=== PATIENT | male | born 1975 | race Asian ===

== ENCOUNTER → 2024-05-13 15:40 | Outpatient (REF) | payer BC, SELFPAY | LOC: DHSLP 15:40 | PROVIDERS: ATTENDING PHYSICIAN Internal Medicine Critical Care Medicine; FAMILY PHYSICIAN Nurse Practitioner Family | DX: G47.33 Obstructive sleep apnea (adult) (pediatric) (principal) | CPT/HCPCS: 95800 ==

== ENCOUNTER 2024-07-31 10:06 | Emergency (ER) | payer BC, SELFPAY ==
[2024-07-31 10:26] VITALS: BP 155/106
--- NOTE | 2024-07-31 11:41 | ED.GENMED ---
History of Present Illness
General
Chief Complaint: Abdominal Symptoms
Source: patient
Exam Limitations: none
Time Seen by Provider: 07/31/24 10:59
Nursing documentation reviewed up to this point in time: agreed with
History of Present Illness
History of Present Illness:
48-year-old male presents to the ER for evaluation nausea vomiting diarrhea. He has been on Zepbound for the past 4 months however at a lower dose of 2.5 mg IM monthly injection. This week however he was given a higher dose of 5 mg on Saturday
injection. Last night he started with vomiting diarrhea and that has since continued this morning. Initially he self-induced the first episode of vomiting because he was very nauseous however he vomited several times after and again this morning.
This morning he was not even able to tolerate oral water. He had several episodes of diarrhea. He denies any abdominal pain. He denies any fever or chills. He denies any urinary frequency urgency or dysuria.
Review of Systems
Review of Systems
Allergies reviewed?: Yes
All Other Systems: ROS reviewed and negative except as documented in HPI and ROS
Constitutional: Reports no symptoms
ABD/GI: Reports nausea, vomiting and diarrhea; Denies abdominal pain
: Reports no symptoms
Musculoskeletal: Reports no symptoms
Skin: Reports no symptoms
Neurological: Reports no symptoms
Hematologic/Lymphatic: Reports no symptoms
Psychiatric: Reports no symptoms
Phy Exam
General Physical Exam
General Presentation: well appearing
General age: appears stated age
General Skin: warm and dry
General Habitus: normal
General Mental: alert
General Hydration: appears well hydrated
Gastrointestinal Exam
Gastrointestinal Exam: non tender and soft
Neurological Exam
Neurological Exam: alert and oriented x3
Musculoskeletal Exam
Musculoskeletal Exam: full ROM
Skin Exam
Skin Exam: normal color and warm/dry
Psychiatric Exam
Psychiatric Exam: normal mood/affect
Course
Orders/Labs/Results
Orders:
Orders
07/31/24 12:02
IV Insert/Care/Rem.- Treatment PRN
Urinalysis Reflex To Culture Urgent
Date Specimen was Collected: 07/31/24
Time Specimen was Collected: 16:07
0.9% Sodium Chloride 1000 ml [Nss] 1,000 ml IV BOLUS
Ondansetron Injectable [Zofran] 4 mg IV NOW STA
07/31/24 12:10
Complete Blood Count/With Diff Urgent
Comprehensive Metabolic Panel Urgent
Lipase Urgent
Magnesium Urgent
Comment: ADD ON
07/31/24 12:40
Add On- LAB Urgent
Tests Added?: Magnesium
07/31/24 14:33
US Abdomen Complete/Upper Urgent
Comment:
Reason For Exam: nausea/vomiting /diarrhea elevated lfts
Abnormal Lab Results
07/31/24
12:10
WBC 13.3 H 10^3/uL
(4.8-10.8)
RBC 6.14 H 10^6/uL
(4.70-6.10)
Hgb 18.5 H g/dL
(13.0-18.0)
Hct 52.9 H %
(39.0-52.0)
MPV 10.8 H fL
(7.4-10.4)
Abs Immat Gran (auto) 0.1 H 10^3/uL
(0-0.05)
Absolute Neuts (auto) 10.6 H 10^3/uL
(1.4-6.5)
Neutrophils % 80.0 H %
(42.2-75.2)
Lymphocytes % 15.6 L %
(20.5-51.1)
Chloride 97 L mmol/L
(98-107)
BUN 25 H mg/dl
(9-20)
Glucose 100 H mg/dl
(70-99)
Calcium 11.0 H mg/dl
(8.4-10.2)
Total Bilirubin 1.6 H mg/dl
(0.2-1.3)
ALT 59 H U/L
(0-50)
Total Protein 8.9 H g/dl
(6.3-8.2)
Albumin 5.5 H g/dl
(3.5-5.0)
07/31/24 12:10
07/31/24 12:10
Vital Signs
Initial and Last Documented VS:
Initial Vital Signs
Temp Pulse Resp BP Pulse Ox
99.5 F 94 18 155/106 98
07/31/24 10:26 07/31/24 10:26 07/31/24 10:26 07/31/24 10:26 07/31/24 10:26
Last Documented Vital Signs
Temp Pulse Resp BP Pulse Ox
99.5 F 87 18 121/73 100
07/31/24 10:26 07/31/24 14:12 07/31/24 14:12 07/31/24 14:12 07/31/24 14:12
[employer] consulted with Physician
[employer] consulted with physician?: Yes
Name of Physician Consulted: DR Whitaker
MDM/Problems Addressed
Differential Diagnosis Includes:
not limited to: Medication reaction dehydration viral syndrome
MDM/Problems Addressed:
Symptoms of nausea vomiting diarrhea likely Zepbound related(as patient recently increased his dose) oral viral syndrome. He denies any abdominal pain with this and had no abdominal tenderness however with mildly elevated bilirubin and ALT
ultrasound was done. Ultrasound currently pending however if negative plan for discharge home with outpatient follow-up. Patient received Zofran and fluids here feeling much better drinking water. Will plan to discharge with Zofran with close
outpatient with family doctor.
Ultrasound negative for evidence for cholelithiasis acute cholecystitis or bili obstruction mild to moderate diffuse liver disease discussed with patient regarding importance of outpatient follow-up patient incidentally also has a gallbladder polyp
Chronic conditions affecting care:
On zepbound for weight loss.
*Critical Care Note
Total Time (30-74mins, 75-104mins- exclusive of procedures): Not Applicable
ED Attending Note
-
Portions of this chart may have been created with voice recognition software.� Occasional wrong word or��sound alike� substitutions may have occurred due to the inherent limitations of voice recognition software.
Discharge Plan
Departure
Patient Disposition: Home (Routine Discharge)
Date of Disposition: 07/31/24
Time of Disposition: 16:17
Patient with high blood pressure during this ER visit?: Yes
Condition: Fair
Covid-19: Not Applicable
Discharge Problem:
Nausea & vomiting, Diarrhea
Instructions: Diarrhea in teens and adults, Nausea and Vomiting, Adult (DC), BLOOD PRESSURE
Prescriptions:
New
ondansetron 4 mg tablet,disintegrating
4 mg PO Q8H PRN (Reason: nausea and vomiting) Qty: 10 0RF
Referrals:
Eugene Johnson CRNP [Family Provider] -
Activity Restrictions/Additional Instructions:
As discussed a prescription for nausea medicine was sent to your pharmacy to take as directed. Clear fluids for the first 24 hours followed by bland solid foods.
As discussed please follow-up with family doctor in the next 2 days for reevaluation of your symptoms. You will need repeat blood work as your bilirubin and liver function tests are elevated along with your white count and you are mildly dehydrated.
In addition please follow-up with your family doctor for reevaluation of your ultrasound results including mild to moderate diffuse liver disease and gallbladder polyp. You were given a copy of your report.
Return if any worsening of symptoms.
Interventions
Interventions:
*Risk Screen - Suicide Last Done: 07/31/24 10:28
*General Assessment Last Done: 07/31/24 10:28
*Neglect/Abuse Screening Last Done: 07/31/24 10:28
ED- Fall Risk Assessment Last Done: 07/31/24 12:23
*ED COVID-19 Vaccine History Last Done: 07/31/24 10:28
MY-Ngsdke-Riljatlgaj Assessment Last Done: 07/31/24 12:23
Discharge Date and Time
Print Language: ETHIOPIAN
[2024-07-31] MEDS: NSS 1000 IV (12:09)
[2024-07-31] MEDS: ZOFRAN 4 MG IV (12:13)
[2024-07-31 12:14] VITALS: BP 149/99
[2024-07-31 12:24] LABS: % Basophils 0.2 % (0-2); % Eosinophils 0.2 % (0-6); % Immature Granulocytes 0.5 % (0-0.5); % Lymphocytes 15.6 % (20.5-51.1); % Monocytes 3.5 % (1.7-9.3); Absolute Immature Granulocytes 0.1 10^3/uL (0-0.05); Absolute Lymphocytes 2.1 10^3/uL (1.2-3.4); Absolute Monocytes 0.5 10^3/uL (0.1-0.6); Absolute Neutrophils 10.6 10^3/uL (1.4-6.5); Hematocrit 52.9 % (39.0-52.0); Hemoglobin 18.5 g/dL (13.0-18.0); Mean Corpuscular Hgb 30.1 pg (27.0-31.0); Mean Corpuscular Volume 86.2 fL (80.0-94.0); Mean Platelet Volume 10.8 fL (7.4-10.4); Nucleated Red Blood Cells % 0 % (-); Platelet Count 295 10^3/uL (130-400); Red Blood Cell Count 6.14 10^6/uL (4.70-6.10); Red Cell Dist. Width 13.4 % (11.5-14.5); White Blood Cell Count 13.3 10^3/uL (4.8-10.8)
[2024-07-31 12:40] LABS: ALT (SGPT) 59 U/L (0-50); AST (SGOT) 40 U/L (17-59); Albumin 5.5 g/dl (3.5-5.0); Alkaline Phosphatase 94 U/L (38-126); Blood Urea Nitrogen 25 mg/dl (9-20); Carbon Dioxide 29 mmol/L (22-30); Chloride 97 mmol/L (98-107); Glucose 100 mg/dl (70-99); Lipase 76 U/L (23-300); Potassium 4.9 mmol/L (3.5-5.1); Sodium 141 mmol/L (135-145); Total Bilirubin 1.6 mg/dl (0.2-1.3); Total Protein 8.9 g/dl (6.3-8.2); eGFR > 60.00
[2024-07-31 13:10] LABS: Magnesium 2.2 mg/dl (1.6-2.3)
[2024-07-31 14:12] VITALS: BP 121/73
[2024-07-31 16:19] VITALS: BP 136/85
[2024-07-31 16:45] LABS: Urine Albumin 1+ (Neg - Trace); Urine Bilirubin 1+ (Negative); Urine Character Clear (Clear); Urine Color Yellow; Urine Glucose Negative (Negative); Urine Ketone Trace (Negative); Urine Leukocyte Negative (Negative); Urine Nitrite Negative (Negative); Urine Occult Blood 1+ (Negative); Urine Urobilinogen Negative (Neg - 1+)
[2024-07-31 16:58] LABS: Urine Mucus Many
[2024-07-31 16:59] LABS: Urine Bacteria Many (Negative); Urine White Cell 0-2 /HPF (0-5)
== END 2024-07-31 16:38 | disposition home or self-care (01) ==
LOC: EMR 10:06
PROVIDERS: Nurse Practitioner; EMERGENCY PHYSICIAN Emergency Medicine; FAMILY PHYSICIAN Nurse Practitioner Family
DX: R11.2 Nausea with vomiting, unspecified (principal); R19.7 Diarrhea, unspecified
CPT/HCPCS: 99284; 96374; 96361; 76700; 80053; 81003; 81015; 83690; 83735; 85025; 87086

== ENCOUNTER 2025-06-11 15:20 | Emergency (ER) | payer BC, SELFPAY ==
[2025-06-11 15:29] VITALS: BP 160/100
[2025-06-11 15:53] LABS: Hematocrit 46.0 % (39.0-52.0); Hemoglobin 16.1 g/dL (13.0-18.0); Mean Corp Hgb Conc. 35.0 g/dL (33.0-37.0); Mean Corpuscular Volume 87.8 fL (80.0-94.0); Nucleated Red Blood Cells % 0 % (-); Platelet Count 221 10^3/uL (130-400); Red Cell Dist. Width 13.3 % (11.5-14.5); Urine Character Clear (Clear)
[2025-06-11 15:59] LABS: Urine Squamous Cell 0-2 /LPF (Few)
[2025-06-11 16:00] VITALS: BP 151/79
[2025-06-11 16:00] LABS: Urine White Cell 0-2 /HPF (0-5)
[2025-06-11 16:01] LABS: Urine Red Blood Cell 26-30 /HPF (0-2)
[2025-06-11 16:19] LABS: ALT (SGPT) 152 U/L (0-50); AST (SGOT) 84 U/L (17-59); Albumin 4.8 g/dl (3.5-5.0); Alkaline Phosphatase 183 U/L (38-126); Blood Urea Nitrogen 16 mg/dl (9-20); Calcium 10.2 mg/dl (8.4-10.2); Carbon Dioxide 29 mmol/L (22-30); Chloride 101 mmol/L (98-107); Glucose 84 mg/dl (70-99); Potassium 4.3 mmol/L (3.5-5.1); Sodium 137 mmol/L (135-145); Total Protein 7.7 g/dl (6.3-8.2); eGFR > 60.00
[2025-06-11 16:20] LABS: Troponin I < 0.012 ng/ml
[2025-06-11 16:35] VITALS: BMI 32.3
--- NOTE | 2025-06-11 16:41 | ED.GENMED ---
History of Present Illness
General
Chief Complaint: Chest Pain
Source: patient
Time Seen by Provider: 06/11/25 16:25
History of Present Illness
History of Present Illness:
49-year-old male presents emergency department with complaints of discomfort that he first felt like was in the 'stomach cramping' area after having dinner on Saturday. He took an antacid and then said that he noted it was more so on the right lower
chest. Since that time, he has had intermittent discomfort across his lower chest bilaterally that feels like someone is holding him tightly. This will come and go without specific provoking or relieving factors. He saw his primary care doctor on
Saturday and was diagnosed with musculoskeletal discomfort. He received a pneumonia vaccine at that time. He presents the ER today because his discomfort continues to wax and wane. He is chest pain-free now. He describes it as mild and 'not
excruciating', also describes it as similar to body aches when you have the flu. He denies associated diaphoresis, nausea, vomiting, anorexia, abdominal pain, urinary symptoms, fever, chills. Patient has not breathless or dyspneic but states that
he feels like he is not taking a deep breath. He denies leg swelling. He does have a history of sciatica and notes a recent flare within the last week or so. Now, he is noting discomfort in the right lower back which is consistent with prior
sciatica. He denies associated bowel or bladder incontinence numbness or tingling. He denies upper or mid back pain. Pain that he is describing is not ripping or tearing quality and not sudden in onset.
Past History
Past History
ED Past Medical History: GERD, Hypercholesterolemia and Other (MITCH)
ED Past Surgical History: Appendectomy and Orthopedic
Social History
Tobacco: Smoker
Alcohol: Occasional
Drug: None
Personal:
Living: with family
Phy Exam
Physical Exam
Physical Exam:
GENERAL: Alert , in no apparent distress
EYE: pupils equal and reactive
NECK: Supple, no significant adenopathy.
ENT: o/p clr, mmm.
CARDIAC: Regular rate and rhythm .
LUNGS: Clear breath sounds bilaterally, no acute respiratory distress, no wheezes/rales/rhonchi
ABDOMEN: Soft, without focal tenderness, no r/g, no cvat
NEUROLOGICAL: Alert and oriented, no focal neuro deficits
SKIN: Warm and dry, skin intact.
MUSCULOSKELETAL: No edema, well perfused.
PSYCH: Normal and appropriate interaction.
Scores
Heart Score for Chest Pain Patients
STEMI patient?: Not applicable
Course
Orders/Labs/Results
Orders:
Orders
06/11/25 15:22
ECG [Electrocardiogram (*1)] Urgent
Reason for Study: Chest Pain
EKG- Treatment ONCE
06/11/25 15:39
Complete Blood Count/With Diff Urgent
Comprehensive Metabolic Panel Urgent
Lipase Urgent
Comment: ADD ON
Troponin I Urgent
Urinalysis Reflex To Culture Urgent
Date Specimen was Collected: 06/11/25
Time Specimen was Collected: 15:32
Urine Microscopic Reflex Cult Urgent
06/11/25 16:40
CT Abd/pel Without Iv Or Oral Urgent
Comment:
Reason For Exam: R sided pain, hematuria
Ketorolac [Toradol] 15 mg IV NOW STA
06/11/25 16:44
D-Dimer Urgent
06/11/25 18:38
Troponin I Urgent
06/11/25 18:52
Add On- LAB Urgent
Tests Added?: lipase add on
Abnormal Lab Results
06/11/25
15:39
MPV 11.0 H fL
(7.4-10.4)
Abs Immat Gran (auto) 0.1 H 10^3/uL
(0-0.05)
Absolute Neuts (auto) 7.0 H 10^3/uL
(1.4-6.5)
Absolute Monos (auto) 0.8 H 10^3/uL
(0.1-0.6)
Immature Gran % 0.6 H %
(0-0.5)
Total Bilirubin 1.6 H mg/dl
(0.2-1.3)
AST 84 H U/L
(17-59)
ALT 152 H U/L
(0-50)
Alkaline Phosphatase 183 H U/L
(38-126)
Ur Occult Blood Reflex 4+ A
(Negative)
Urine RBC 26-30 A /HPF
(0-2)
Urine Bacteria (Reflex) Few A
(Negative)
Urine Albumin (Reflex) 1+ A
(Neg - Trace)
06/11/25 15:39
06/11/25 15:39
Vital Signs
Initial and Last Documented VS:
Initial Vital Signs
Temp Pulse Resp BP Pulse Ox
98.9 F 91 16 160/100 98
06/11/25 15:29 06/11/25 15:29 06/11/25 15:29 06/11/25 15:29 06/11/25 15:29
Last Documented Vital Signs
Temp Pulse Resp BP Pulse Ox
98.9 F 75 22 157/89 97
06/11/25 15:29 06/11/25 19:00 06/11/25 19:00 06/11/25 19:00 06/11/25 19:00
*Pulse Oximetry
SaO2: 98
Oxygen Mode of Delivery: Room air
Patient hypoxic: no
*Critical Care Note
Total Time (30-74mins, 75-104mins- exclusive of procedures): Not Applicable
Update Note
Update Note:
Patient presents to the Emergency Department with ____chest and lower R back pain
Number and Complexity of Problems Addressed at the Encounter
� Chronic conditions affecting care:
� Acute Exacerbation and/or Progression of Chronic Illness:
� Differential Diagnosis includes:but not limited to sciatica, msk pain, pe, acs, kidney stone, cholecystitisetc etc.
Amount and/or Complexity of Data to be Reviewed and Analyzed
� I performed an independent evaluation of and my interpretation is:
EKG:read by me, nsr, incomleted RBBB, no acute ischemia (non spec T wave inver)
CT:Findings suggesting mild acute pancreatitis. Clinical and laboratory correlation recommended.
Moderate fecal matter throughout the colon.
Xrays:
Laboratory Studies:nonspec lft abnl, miroscop hematuria (?k stone), nl wbc, trop wnl x 2, lipase normal despite mild acute pancreatitis noted on CT scan
Other:
� Review of other/old records reveals:
� Clinical information was obtained by an independent historian:
� Prescriptions/Medications Considered but not given:
� Further testing considered but not performed:
Risk of Complications and/or Morbidity or Mortality of Patient Management
� Social determinants of health affecting care:
� Discussion with other providers (PCP, Hospitalists, Consultants, etc):
� Escalation of care including admission/observation vs risk of discharge considered: 7:47 PM patient resting comfortably, smiling, no acute distress, denies any complaints at this time. Long discussion with him regarding
findings here that require close follow-up including microscopic hematuria, CT finding of mild acute pancreatitis despite a normal lipase. Of note, he thinks that this was a finding in the past. Patient is on Zepbound which may be contributing to
this. He is not having episodes of nausea or vomiting at this time. He was also made aware regarding his mild LFT abnormalities. He has not had excessive acetaminophen intake. He drinks about 1 serving of alcohol per day. Discussed with patient
portance of follow-up and reasons return to the ER.
ED Attending Note
-
Portions of this chart may have been created with voice recognition software.� Occasional wrong word or��sound alike� substitutions may have occurred due to the inherent limitations of voice recognition software.
Discharge Plan
Departure
Patient Disposition: Home (Routine Discharge)
Date of Disposition: 06/11/25
Time of Disposition: 19:47
Patient with high blood pressure during this ER visit?: Yes
Condition: Good
Discharge Problem:
Chest pain
Instructions: Chest Pain PCP Follow Up, BLOOD PRESSURE
Prescriptions:
No Action
ondansetron 4 mg tablet,disintegrating
4 mg PO Q8H PRN (Reason: nausea and vomiting) Qty: 10 0RF
Referrals:
UNKNOWN - PT DOES,NOT KNOW [Unknown Provider]
Activity Restrictions/Additional Instructions:
PLEASE BRING THE PRINTED COPIES OF YOUR CAT SCAN AND LABORATORY VALUES TO YOUR DOCTOR THIS WEEK AND CLOSE FOLLOW-UP. IF YOU DEVELOP RECURRENT CHEST PAIN, ANY ABDOMINAL PAIN, VOMITING, TROUBLE BREATHING, FEVER, OR OTHER WORRISOME SIGNS, PLEASE
RETURN TO THE ER IMMEDIATELY!
Interventions
Interventions:
*Risk Screen - Suicide Last Done: 06/11/25 15:29
*General Assessment Last Done: 06/11/25 16:37
*Neglect/Abuse Screening Last Done: 06/11/25 15:29
*ED- Fall Risk Assessment Last Done: 06/11/25 16:37
*ED COVID-19 Vaccine History Last Done: 06/11/25 16:37
ED- Cardiac Assessment Last Done: 06/11/25 16:34
Discharge Date and Time
Print Language: FRENCH
[2025-06-11] MEDS: TORADOL 15 MG IV (16:48)
[2025-06-11 17:00] VITALS: BP 151/86
[2025-06-11 17:10] LABS: D-Dimer < 0.27 ug/mlFEU (0.00-0.50)
[2025-06-11 18:38] VITALS: BP 145/88
[2025-06-11 19:00] VITALS: BP 157/89
[2025-06-11 19:13] LABS: Troponin I 0.013 ng/ml
[2025-06-11 19:33] LABS: Lipase 124 U/L (23-300)
== END 2025-06-11 19:59 | disposition home or self-care (01) ==
LOC: EMR 15:20
PROVIDERS: EMERGENCY PHYSICIAN Emergency Medicine; FAMILY PHYSICIAN Nurse Practitioner Family
DX: R07.9 Chest pain, unspecified (principal); E78.00 Pure hypercholesterolemia, unspecified; F17.200 Nicotine dependence, unspecified, uncomplicated; G47.33 Obstructive sleep apnea (adult) (pediatric)
CPT/HCPCS: 99284; 96374; 74176; 80053; 81003; 81015; 83690; 84484; 85025; 85379; 93005